=== PATIENT | female | born 1950 | race Caucasian/White ===

== ENCOUNTER → 2016-04-19 | Outpatient (CLI) | payer BC ==
[~2016-04-19] MED LIST: BUSPAR10 MG PO; CELEXA40 MG PO; KRILL OIL 5001 EACH PO; PRESERVISION1 SGL PO; PROBIOTIC FORMU1 CAP PO; XANAX 0.5MG0.5 MG PO
== END ==
LOC: BHSO 08:57
DX: F41.1 Generalized anxiety disorder (principal)

== ENCOUNTER → 2016-06-06 | Outpatient (CLI) | payer BC | LOC: MC.RAD 06:58 | DX: Z12.31 Encounter for screening mammogram for malignant neoplasm of breast (principal); R92.1 Mammographic calcification found on diagnostic imaging of breast ==

== ENCOUNTER 2016-06-22 08:09 | Emergency (ER) | payer BC ==
[~2016-06-22] VITALS: Ht 170.2 cm; Wt 76.8 kg
[2016-06-22 08:10] VITALS: TEMP 97.7
[2016-06-22] MEDS ORDERED: BUSPAR10 MG PO (08:40)
[2016-06-22] MEDS ORDERED: CELEXA40 MG PO (08:41)
[2016-06-22] MEDS ORDERED: XANAX 0.5MG0.5 MG PO (08:41)
[2016-06-22] MEDS ORDERED: PRESERVISION1 SGL PO (08:42)
[2016-06-22] MEDS ORDERED: KRILL OIL 5001 EACH PO (08:42)
[2016-06-22] MEDS ORDERED: PROBIOTIC FORMU1 CAP PO (08:43)
[2016-06-22 09:14] VITALS: BP 111/63; PULSE 45
== END 2016-06-22 09:17 | disposition home or self-care (01) ==
LOC: COL.ER 08:09
DX: K92.2 Gastrointestinal hemorrhage, unspecified (principal); K60.2 Anal fissure, unspecified

== ENCOUNTER → 2016-10-07 | Outpatient (CLI) | payer MEDICARE, OTHER | LOC: BHSO 14:52 | DX: F33.1 Major depressive disorder, recurrent, moderate (principal) ==

== ENCOUNTER → 2017-04-08 | Outpatient (CLI) | payer MEDICARE, OTHER | LOC: BHSO 08:55 | DX: F41.1 Generalized anxiety disorder (principal) | CPT/HCPCS: G0463 ==

== ENCOUNTER → 2017-06-09 | Outpatient (CLI) | payer MEDICARE, OTHER | LOC: MC.RAD 06:52 | DX: Z12.31 Encounter for screening mammogram for malignant neoplasm of breast (principal) ==

== ENCOUNTER → 2017-10-07 | Outpatient (CLI) | payer MEDICARE, OTHER | LOC: BHSO 14:34 | DX: F33.41 Major depressive disorder, recurrent, in partial remission (principal) | CPT/HCPCS: G0463 ==

== ENCOUNTER → 2018-03-06 | Outpatient (CLI) | payer MEDICARE, OTHER | LOC: BHSO 07:59 | DX: F41.1 Generalized anxiety disorder (principal) | CPT/HCPCS: G0463 ==

== ENCOUNTER → 2018-06-11 | Outpatient (CLI) | payer MEDICARE, OTHER | LOC: MC.RAD 06:48 | DX: Z12.31 Encounter for screening mammogram for malignant neoplasm of breast (principal) ==

== ENCOUNTER → 2018-08-21 | Outpatient (CLI) | payer MEDICARE, OTHER | LOC: BHSO 08:17 | DX: F33.42 Major depressive disorder, recurrent, in full remission (principal) | CPT/HCPCS: G0463 ==

== ENCOUNTER 2019-01-27 07:39 | Day surgery (SDC) | payer BC, MEDICARE, OTHER ==
[2019-01-27] VITALS (7 sets, daily range): BP systolic 97–126; BP diastolic 53–83; PULSE 58–77; TEMP 97.6–97.8
[~2019-01-27] VITALS: Ht 167.6 cm; Wt 73.0 kg
[2019-01-27] MEDS ORDERED: LIPITOR 10MG10 MG PO (08:07)
[2019-01-27] MEDS ORDERED: ULTRAM 50MG TAB50 MG PO (14:27)
--- NOTE | 2019-01-27 14:55 | NUR ---
Pt arrived back to room from PACU with RN, Mery. Upon return, pt's VSS and WNL. Pt's abdomen is soft and mildly tender with palpation. Bandaids are intact and without drainage. Reviewed with patient the goals for discharge including voiding, eating/drinking, managing nausea, managing pain. Pt agrees with plan and expresses understanding. Pt is awake but states she feels "a little woozy." Call light within reach and friend, Tata at bedside.
--- NOTE | 2019-01-27 15:00 | NUR ---
Pt resting comfortably in bed. VSS and WNL. Pt finished water and states that she feels a little "queasy." She says she wants to try betina crackers to see if that helps. Call light within reach.
--- NOTE | 2019-01-27 15:01 | NUR ---
Salvador crackers and water brought per pt's request.
--- NOTE | 2019-01-27 15:30 | NUR ---
Pt sitting comfortably in bed, and she states that her nausea has eased somewhat. She was able to eat more applesauce and drink more water. VSS and WNL and call light within reach.
--- NOTE | 2019-01-27 15:31 | NUR ---
Pt awake, alert, and oriented. Pt states that her "eye is bothering her" like it's having "difficulty focusing." She says it's getting better. Pt also stating that her nausea is increasing, and she would like medication. Pt taken off 02 and saturation continues to maintain in normal levels. More water and applesauce brought to patient per her request.
--- NOTE | 2019-01-27 15:45 | NUR ---
Pt still sitting comfortably in bed. VSS and WNL. Pt's nausea has improved since zofran administration. She is awake and oriented, but she states that she still feels drowsy.
--- NOTE | 2019-01-27 15:45 | NUR ---
Pt dozing. VSS and WNL.
--- NOTE | 2019-01-27 16:00 | NUR ---
Pt successfully up to bathroom for a void. Pt states that she is ready to go home. Reviewed discharge information with patient and friend including activity restrictions and what to do if concerns/questions arose. Pt meets criteria for discharge. Encouraged pt to follow up with PCP if eye continues to bother her. She states that she would like to go home to try eye drops to see if they would help. VSS and WNL upon discharge.
== END 2019-01-27 16:40 | disposition home or self-care (01) ==
LOC: SDCO 07:39
DX: K40.30 Unilateral inguinal hernia, with obstruction, without gangrene, not specified as recurrent (principal); K40.90 Unilateral inguinal hernia, without obstruction or gangrene, not specified as recurrent; Z88.0 Allergy status to penicillin; Z88.1 Allergy status to other antibiotic agents; Z79.899 Other long term (current) drug therapy; Z88.8 Allergy status to other drugs, medicaments and biological substances; F41.9 Anxiety disorder, unspecified; E78.5 Hyperlipidemia, unspecified; F41.0 Panic disorder [episodic paroxysmal anxiety]; E78.00 Pure hypercholesterolemia, unspecified
CPT/HCPCS: C1781; J1100; J1885; J2250; J2405; J2704; J3010; J7120

== ENCOUNTER → 2019-03-01 | Outpatient (CLI) | payer BC, MEDICARE ==
[~2019-03-01] MED LIST changes: +LIPITOR 10MG10 MG PO; +ULTRAM 50MG TAB50 MG PO
== END ==
LOC: BHSO 07:58
DX: F33.42 Major depressive disorder, recurrent, in full remission (principal)
CPT/HCPCS: G0463

== ENCOUNTER 2019-03-11 14:51 | Outpatient (RCR) | payer OTHER | END 2019-06-09 | disposition home or self-care (01) | LOC: WSOH | DX: S80.02XA Contusion of left knee, initial encounter (principal); F41.9 Anxiety disorder, unspecified; E78.00 Pure hypercholesterolemia, unspecified; H35.30 Unspecified macular degeneration; Z90.710 Acquired absence of both cervix and uterus; Z98.890 Other specified postprocedural states; Z96.652 Presence of left artificial knee joint; Y99.0 Civilian activity done for income or pay ==

== ENCOUNTER → 2019-07-02 | Outpatient (CLI) | payer BC, MEDICARE | LOC: MC.RAD 06-14 07:00 | DX: Z12.31 Encounter for screening mammogram for malignant neoplasm of breast (principal) ==

== ENCOUNTER → 2019-09-06 | Outpatient (CLI) | payer BC, MEDICARE | LOC: BHSO 08:03 | DX: F41.1 Generalized anxiety disorder (principal) | CPT/HCPCS: G0463 ==

== ENCOUNTER 2020-02-02 05:20 | Day surgery (SDC) | payer BC, MEDICARE ==
[~2020-02-02] VITALS: Ht 167.6 cm; Wt 79.5 kg
[2020-02-02 06:19] VITALS: BP 115/58; PULSE 53; TEMP 98.1
[2020-02-02] MEDS ORDERED: SYNTHROID0.1 MG/TAB PO (06:27)
[2020-02-02] MEDS ORDERED: ULTRAM 50MG TAB50 MG PO (09:35)
[2020-02-02 10:30] VITALS: BP 103/58; PULSE 64; TEMP 97.7
--- NOTE | 2020-02-02 10:30 | NUR ---
PATIENT TRANSPORTED PER CART FROM PACU ACCOMPANIED BY PACU STAFF. MONITORS APPLIED. VSS ON ROOM AIR. PATIENT ALERT AND TALKING WITH STAFF. 1040 PATIENT GIVEN HOT MOISES TO DRINK. PATIENT RESTING BUT RESPONDS TO QUESTIONS ASKED. PATIENT DOES NOT C/O OF DISCOMFORT.
[2020-02-02 10:45] VITALS: BP 109/56; PULSE 63
--- NOTE | 2020-02-02 10:45 | NUR ---
VSS ON ROOM AIR. PATIENT DRINKING HOT COCOA WITHOUT PROBLEMS. PATIENT STATES THAT DISCOMFORT TO SURGERY SITE IS MINIMAL. HAVING GAS ON STOMACH AND BURPING ALITTLE. 7204 PATIENT GIVEN BUTTER TOAST TO EAT.
[2020-02-02 11:15] VITALS: BP 109/55; PULSE 63
--- NOTE | 2020-02-02 11:15 | NUR ---
VSS ON ROOM AIR. PATIENT EATS TOAST WITHOUT PROBLEMS. PATIENT DOES NOT VOICE C/O'S.
[2020-02-02 11:30] VITALS: BP 116/61; PULSE 16
[2020-02-02 11:40] VITALS: BP 120/64; PULSE 61
--- NOTE | 2020-02-02 11:40 | NUR ---
VSS ON ROOM AIR. DISCHARGE INSTRUCTIONS GIVEN VERBAL AND DISCHARGE PACKET PROVIDED TO PATIENT. QUESTIONS ANSWERED AND PATIENT VOICED UNDERSTANDING. PATIENT CHANGES INTO STREET CLOTHES. AWAITING FOR HER RIDE HOME TO ARRIVE.
--- NOTE | 2020-02-02 11:49 | NUR ---
VSS ON ROOM AIR. PATIENT DENIES DISCOMFORT. IV SITE DC'D WITH CATHETER TIP INTACT. PRESSURE AND BANDAGE APPLIED. PATIENT AMBULATES TO RESTROOM WITH SLOW STEADY GAIT. PATIENT VOIDS WITHOUT PROBLEMS.
--- NOTE | 2020-02-02 12:09 | NUR ---
PATIENT'S RIDE ARRIVES AT HOSPITAL BUT DID NOT CALL. PATIENT DID TEXT FRIEND AND FRIEND WAS AT HOSPITAL. PATIENT TAKEN DOWN TO PATIENT ENTERANCE BY WHEEL CHAIR TO POV DRIVEN BY FRIEND.
== END 2020-02-02 12:09 | disposition home or self-care (01) ==
LOC: SDCO 05:20
DX: K40.91 Unilateral inguinal hernia, without obstruction or gangrene, recurrent (principal); F41.9 Anxiety disorder, unspecified; F32.9 Major depressive disorder, single episode, unspecified; E78.5 Hyperlipidemia, unspecified; M19.90 Unspecified osteoarthritis, unspecified site; Z90.710 Acquired absence of both cervix and uterus; Z88.0 Allergy status to penicillin; Z88.1 Allergy status to other antibiotic agents; G43.909 Migraine, unspecified, not intractable, without status migrainosus; K76.0 Fatty (change of) liver, not elsewhere classified
CPT/HCPCS: C1781; J0690; J1100; J1885; J2405; J2704; J3010; J7120

== ENCOUNTER → 2020-07-03 | Outpatient (CLI) | payer BC, MEDICARE ==
[~2020-07-03] MED LIST changes: +SYNTHROID0.1 MG/TAB PO
== END ==
LOC: MC.RAD 07:20
DX: Z12.31 Encounter for screening mammogram for malignant neoplasm of breast (principal)

== ENCOUNTER → 2021-07-13 | Outpatient (CLI) | payer BC, MEDICARE | LOC: MC.RAD 06:47 | DX: Z12.31 Encounter for screening mammogram for malignant neoplasm of breast (principal) ==

== ENCOUNTER 2023-04-26 05:55 | Emergency (ER) | payer MEDICARE, BC ==
[~2023-04-26] VITALS: Ht 167.6 cm; Wt 83.2 kg
[2023-04-26 06:16] VITALS: BP 161/75; TEMP 97.5
[2023-04-26] MEDS ORDERED: TRIAM OI 0.1 80 TOP (06:31)
[2023-04-26 06:33] VITALS: PULSE 78
== END 2023-04-26 06:48 | disposition home or self-care (01) ==
LOC: COL.ER 05:55
DX: K64.4 Residual hemorrhoidal skin tags (principal); L25.9 Unspecified contact dermatitis, unspecified cause